=== PATIENT | female | born 1945 | race Caucasian/White ===

== ENCOUNTER 2016-08-13 17:59 | Emergency (ER) | payer MEDICARE, OTHER ==
[~2016-08-13] VITALS: Ht 170.2 cm; Wt 113.6 kg
[~2016-08-13 17:59] MED LIST: CALC500T53 PO; CHOL200025 PO; DILT240C89 PO; LISI1TAB9 PO; OMEG-38 PO; PROP225T PO; WARF10TA4 PO; WARF7.5T4 PO
[2016-08-13 18:02] VITALS: PULSE 125; RESP 18; O2SAT 100
[2016-08-13 18:34] LABS: BASOPHILS % (AUTO) 0.2 % (0-3); EOSINOPHILS % (AUTO) 1.2 % (0-5); MONOCYTES % (AUTO) 7.9 % (4-12); Mean Corpuscular Hemoglobin 28.6 pg (27.0-35.0); Mean Corpuscular Volume 86.7 fL (81-100); NEUTROPHILS % (AUTO) 57.7 % (40-74); Platelet Count 366 bil/L (150-400)
[2016-08-13 19:00] LABS: TROPONIN T < 0.010 ug/L (0.0-0.011)
--- NOTE | 2016-08-13 19:11 | DRSVH ---
PROCEDURE: X-RAY CHEST ONE VIEW, PORTABLE ([id number]) INDICATIONS: ATRIAL FIBRILLATION TECHNIQUE: One view of the chest was acquired. COMPARISON: [facility], , CHEST 1VW (PORTABLE), 08/22/2008, 0:57. FINDINGS: Surgical changes and devices: None. Lungs and pleura: No pleural effusions or pneumothorax. Lungs are clear. Mediastinum: Mediastinal contours appear normal. Heart size is normal. Bones and chest wall: No suspicious bony lesions. Overlying soft tissues appear unremarkable. IMPRESSION: No acute disease Dictated by: Uriel Singh M.D. on 08/13/2016 at 19:07 Approved by: Uriel Singh M.D. on 08/13/2016 at 19:09
--- NOTE | 2016-08-13 19:31 | ED.REPORT ---
HPI-Chest Pain 40 and Over Date of Service Aug 13, 2016 ED Provider: Denzel Cintron MD 70 y/o female anticoagulated on Warfarin w/ a hx of A-fib on Propafenone, HTN, presents to the ED c/o constant irregular palpitations onset 3 days ago. She c/ o associated lightheadedness which is now resolved and is exacerbated by movement. Patient denies diaphoresis, chest pain, SOB, dizziness, nausea or vomiting. She regularly takes Propafenone but missed a single dose 2 or 3 days ago. Coumadin was last measured a couple of weeks ago and appeared normal. Nursing Notes Stated Complaint: LIGHT HEADED, AFIB Chief Complaint: Dysrhythmia/Cardiac Nursing Notes Reviewed: Yes (Zipnosis,) Allergies: Coded Allergies: propoxyphene HCl (Verified Allergy, Mild, Nausea,Vomiting, 11/29/12) Scheduled Calcium Carbonate (Calcium Carbonate) 200 Mg Tab.chew 200 MG PO TID Cholecalciferol (Vitamin D3) (Vitamin D3) 2,000 Unit Tablet 2,000 UNIT PO DAILY Diltiazem ER (Diltiazem ER) 240 Mg Cap.er.24h 240 MG PO DAILY Lisinopril / HCTZ 20-12.5 mg (Lisinopril / HCTZ 20-12.5 mg) 1 Each Tablet 1 EACH PO DAILY Brent-3/Dha/Epa/Fish Oil (Fish Oil 1,000 mg Softgel) 1 Each Capsule 1 EACH PO DAILY Propafenone (Propafenone) 225 Mg Tablet 225 MG PO DAILY Warfarin Sodium (Warfarin Sodium) 10 Mg Tablet 10 MG PO 2 TIMES A WEEK Warfarin Sodium (Warfarin Sodium) 7.5 Mg Tablet 7.5 MG PO 5 DAYS A WEEK General Time Seen by MD: 19:15 Chief Complaint Other (irregular palpitations) Hx Obtained From: Patient Arrived By: Walk-in Sudden in Onset?: Yes Onset Occurred: 3 days ago Symptom Duration: Since onset Severity: Current: No pain currently Severity: Maximum: No pain Recent Healthcare: Previous diagnosis, Prior workup Similar Sx Previous: Yes Past Medical History Past Medical History Atrial fibrillation, status post prior DC cardioversion by cardiology January 2016, on warfarin History of ventricular tachycardia Hypertension Sleep apnea Past Surgical History Prior atrial ablation July 2010 Cholecystectomy History of breast biopsy Reports: Hysterectomy Smoking History Never Smoker Social History Alcohol Use: Denies alcohol use Ambulatory Status Independent Review of Systems Respiratory: Denies: Shortness of breath Cardiovascular: Reports: Palpitations, Denies: Chest pain GI: Denies: Nausea, Vomiting Skin: Denies Diaphoresis Neurologic: Reports: Lightheaded, Denies: Dizziness Complete sys rev & neg: except as marked. Physical Exam Initial Vital Signs Vital Signs (First) Date Time Temp Pulse Resp B/P Pulse Ox O2 Delivery O2 Flow Rate FiO2 08/13/16 18:02 36.0 125 18 100 Room Air 08/13/16 21:20 125/62 Initial VS: Reviewed, Vital signs abnormal Head / Eyes: Atraumatic, Normocephalic, PERRL ENT: Mucous membranes moist, Conjunctiva normal, No scleral icterus Neck: Supple, Full range of motion Extremities: Vascular intact, Neuro intact, No swelling, No tenderness Skin: Warm, Dry, No cyanosis Neurologic: Alert, Oriented, Nonfocal Psychiatric: Mood/affect normal, Behavior normal, Normal thought content General/Constitutional: Awake, Alert, No acute distress, Cooperative, Not toxic appearing Respiratory / Chest: Atraumatic, Breath sounds NL, Breath sounds = bilat, No respiratory distress, No rales, No rhonchi, No wheezing, No retractions, No stridor, No chest tenderness, No chest wall deformity, No crepitus Cardiovascular: Regular rhythm, Heart sounds NL, No gallop, No murmurs, No rubs , Cap refill not delayed, Peripheral circulation NL Heart Rate / Rhythm: Positive: Tachycardia Abdomen: Atraumatic, Soft, Non-tender, No guarding, No rebound, No distention Interpretation & Diagnostics Lab Results Interpretation Result Diagram: 08/13/16 1825 08/13/161824 Test 08/13/16 18:25 08/13/16 19:46 White Blood Count 13.8th/mm3 (3.8-10.1) Red Blood Count 5.10mil/mm3 (3.90-5.20) Hemoglobin 14.6g/dL (12.0-15.6) Hematocrit 44.2% (35.0-46.0) Mean Corpuscular Volume 86.7fL (81-100) Mean Corpuscular Hemoglobin 28.6pg (27.0-35.0) Mean Corpuscular Hemoglobin Concent 33.0% (32.0-37.0) Red Cell Distribution Width 14.2% (12.3-15.4) Platelet Count 366bil/L (150-400) Neutrophils (%) (Auto) 57.7% (40-74) Lymphocytes (%) (Auto) 32.8% (14-46) Monocytes (%) (Auto) 7.9% (4-12) Eosinophils (%) (Auto) 1.2% (0-5) Basophils (%) (Auto) 0.2% (0-3) Prothrombin Time 24.2sec (8.1-12.5) Prothromb Time International Ratio 2.23ratio Sodium Level 144mEq/L (134-144) Potassium Level 3.8mEq/L (3.5-5.2) Chloride Level 102mEq/L (97-108) Carbon Dioxide Level 25mmol/L (18-29) Blood Urea Nitrogen 17mg/dL (8-27) Creatinine 0.82mg/dL (0.57-1.00) Estimat Glomerular Filtration Rate 99mL/min (>59) Glucose Level 103mg/dL (60-99) Calcium Level 9.5mg/dL (8.5-10.1) Magnesium Level 2.0mg/dL (1.6-2.6) Total Bilirubin 0.2mg/dL (0.0-1.2) Aspartate Amino Transf (AST/SGOT) 24U/L (0-50) Alanine Aminotransferase (ALT/SGPT) 19U/L (0-32) Alkaline Phosphatase 52U/L (25-165) Troponin T < 0.010ug/L (0.0-0.011) Total Protein 7.8g/dL (6.4-8.4) Albumin 4.3g/dL (3.4-5.0) Hold Urine Received (Received) Lab Results Interpretation: CBC mild leukocytosis CMP normal Troponin negative INR therapeutic ECG Interpretation ECG Interpretation: Atrial fibrillation, Rate is 129 Inferior infarct, old Time: 18:40 Interpreted by: ED physician Normal ECG Interpretation: No acute ischemic changes X-Ray Chest Interpretation Chest Xray Interpretation: IMPRESSION: No acute disease Dictated by: rUiel Singh M.D. on 08/13/2016 at 19:07 Approved by: Uriel Singh M.D. on 08/13/2016 at 19:09 View: Portable, 1 view Interpretation / Wet Read by: Interpret - Radiologist Procedures Electrical Cardioversion Time: 20:32 Procedure Performed by: ED physician Indication: Atrial fibrillation Consent / Setup / Site Prep: Informed consent provided, Consent from patient , Time-out performed, Placed on oxygen, Placed on pulse oximeter, Place on monitoring engineer, Hand hygiene observed, Stand sterile technique Procedural Sedation/Analgesia: Sedation: Other (Brevital 40mg) Joules: 200 Procedure Successful: Yes Post-Procedure Rhythm: Normal sinus rhythm Post-Procedure / Complications: No complications, Condition improved, Tolerated procedure well, Patient stable Proced Mod Sedation/Analgesia Time: 20:29 Procedure Performed by: ED physician Sedation Time: 10 - 15 min Consent / Setup: Informed consent provided, Consent from patient, Time-out performed, Hand hygiene observed, Stand sterile technique Indication: Other (cardioversion) Preparation: athletic monitor applied, Pulse oximeter applied, Constant attendance, IV access established, Eval last meal time, Supplemental oxygen, Procedure explained, Suction available, End tidal CO2 mon applied VS Prior to Procedure: All vital signs normal, O2 saturation normal, Blood pressure normal, Heart Rate normal, Respiratory rate normal Mallampati: Class & Anatomy: 2 top tonsil/uvula/palate Airway Exam: Normal facial anatomy, Normal neck anatomy, Normal anatomy CVS/Resp Exam: Normal breath sounds, Normal heart sounds Neuro Exam: Alert, No acute distress, Responsive Sedation: Sedation: Other (Brevital 40mg) ASA Classification: 2 mild systemic disease Response During Procedure: Handled secretions adeq, Maintained airway well, Oxygenation stable, Sedation appropriate, Vital signs stable Complications During/After: None Reversal: None required Mental Status After Procedure: Alert, Oriented X3 Post-Procedure: Alert prior to discharge, Ambulatory with assist, Pt rtn pre- proc baseline, Vital signs normal Attestation: I performed procedure, I performed sedation Re-Eval/Medical Decision Med Decision/Clinical Course This is a 70-year-old females had intermittent atrial fibrillation over the years. She has been cardioverted a number of times, status post ablation back in 2010, her last cardioversion was somewhat of last year. He notes that 3 days ago she developed atrial fibrillation, tonight she felt slightly lightheaded-and a brought her in. She recalled her nutrition manager earlier this week, and has planned follow-up for next week, as the hope which she would cardiovert over a few days on her own, with the thought that they would cardiovert her if she had not. She is chronically anticoagulated on warfarin. She denies any chest pain, dyspnea, diaphoresis, nausea or vomiting, or clear exertional symptoms. Better now that she is here in the emergency department. She clinically appears well but is in atrial fibrillation with rapid ventricular response. Reports she is had rock solid therapeutic INRs for months. She reports she has been compliant with her medications. She is on propafenone. The patient received a dose of diltiazem with rate control. Her labs are normal. Her symptoms have resolved, she remained a symptomatically in the ED. She had no other dysrhythmic events. She is therapeutic on her INR, and indicates she is been chronically so. Therefore she is a candidate for DC cardioversion, which I offered-and she accepted. Informed consent was obtained. She is an excellent candidate except for history of sleep apnea. Records indicate she has been successfully converted with 1 mg of Versed, 40 mg of Brevital-so this was used and worked perfectly. Patient tolerated the procedure and the sedation without any difficulties. She is successfully cardioverted with a single biphasic 200 J synchronized shock. She recovered uneventfully, numbness and bleeding and asymptomatic at time of discharge. Rise to follow-up with her nutrition manager this week as originally planned. She is continue her current medications include warfarin and propafenone. She is discharged with routine precautions. Source of Hx: Old records Time of Eval: 20:50 Re-Evaluation/Progress Note: She is appropriately responsive and returned to baseline. Informed pt of plan for treatment. Pt understands and agrees with plan for treatment. F/U and RTER warnings given. All questions addressed. Differential Diagnosis: Positive: Dysrhythmia, Negative: Acute coronary syndrome, Acute myocardial infarct, Asthma exacerbation, Contusion, Costochondritis, Hiatal hernia, Pneumomediastinum, Pneumonia, Pneumothorax, Pulmonary edema, Pulmonary embolism, Rib fracture, Stab wound chest Counseled Regarding: Diagnosis, Lab results, Need for follow-up, When/why to return to ED Discharge & Departure Primary Impression: Atrial fibrillation with RVR Additional Impression: Anticoagulated on warfarin Disposition: Home Discharge Condition All VS Reviewed: Yes Condition: Stable Additional Instructions: 1. You had symptomatic atrial fibrillation tonight. 2. Your blood work was normal, including your heart tests, with no markers of a heart attack. You were also therapeutic with her Coumadin and your INR. 3. You underwent procedural sedation, and cardioversion today-which is returning back to a normal sinus rhythm. 4. Do recommend calling Dr. on Tuesday, and keeping her appointment for next week for recheck. 5. No driving tonight. Take it easy tonight after the sedation you received. 6. Return if new or worsening symptoms. Referrals: Javed Argueta MD (PCP) Scribe Attestation Portions of this note were transcribed by Hussain Mancia and Lane Galloway. I, Dr. Cintron personally performed the history, physical exam and medical decision -making; I reviewed and confirmed the accuracy of the information in the transcribed note. Signed by: Hussain Mancia and Sy Solano, 08/13/2016 and 2117. copies to: Javed Argueta MD, Matthew F MD Aug 13, 2016 19:31 Hussain Mancia Aug 13, 2016 19:[address] G[address] Aug 13, 2016 19:52
[2016-08-13] MEDS ORDERED: Diltiazem 5 mg/mL 5 mL Inj IVPUSH ONE (19:35)
[2016-08-13 19:51] LABS: INR 2.23 ratio
[2016-08-13] MEDS ORDERED: Methohexital 10 mg/mL 50 mL Inj IV ONE (20:05)
[2016-08-13 21:20] VITALS: BP 125/62; PULSE 79; RESP 16; O2SAT 98
== END 2016-08-13 21:18 | disposition home or self-care (01) ==
LOC: SED 17:59
DX: I48.91 Unspecified atrial fibrillation (principal); I10 Essential (primary) hypertension; Z86.79 Personal history of other diseases of the circulatory system; Z79.01 Long term (current) use of anticoagulants; Z88.5 Allergy status to narcotic agent
CPT/HCPCS: 36415; 71010; 80053; 83735; 84484; 85025; 85610; 92960; 93005; 94770; 96374; 96375; 99152; 99285; J2250